=== PATIENT | female | born 1965 | race Caucasian/White ===

== ENCOUNTER → 2021-09-04 07:44 | Outpatient (CLI) | payer BC, SELFPAY ==
--- NOTE | ~2021-09-04 | MM_ITS ---
EXAMINATION: MM screening esther BI w rahel HISTORY: Screening mammogram TECHNIQUE: Craniocaudal and mediolateral oblique 3-D tomosynthesis images were obtained and synthetic 2-D images were generated. CAD analysis was submitted and interpreted. COMPARISON: 09/04/2018, 08/17/2017, 08/03/2016 bilateral screening mammogram examinations BREAST PARENCHYMAL COMPOSITION: There are scattered areas of fibroglandular density. FINDINGS: There is no evidence of suspicious mass, calcification, or architectural distortion to sugg est malignancy in either breast. There has been no suspicious interval change. IMPRESSION: 1. No mammographic evidence of malignancy. 2. Recommend routine screening mammography in one year. BI-RADS Category 1: Negative Reviewed, dictated and finalized at location A. E BROKER
--- NOTE | ~2021-09-04 | DEXA_ITS ---
Bone Density Report Name: YESSENIA BUSTAMANTE Age: 56 Sex: Female Ethnicity: White Date of : 1965 Indication: monitoring treatment; inflammatory bowel disease; asthma or emphysema; Referring Provider: Isrrael, Lor Study: Bone densitometry was performed. Exam Date: September 04, 2021 Accession number: [id number] Bone Density: Region BMD T-score Z-score Classification AP Spine (L1-L4) 1.350 2.8 3.9 Normal Femoral Neck (Left) 1.150 2.7 3.8 Normal Total Hip (Left) 1.270 2.7 3.4 Normal Femoral Neck (Right) 1.245 3.6 4.7 Normal Total Hip (Right) 1.300 2.9 3.7 Normal Total Hip Mean 1.285 2.8 3.6 Normal World Health Organization criteria for BMD impression classify patients as: Normal (T-score at or above -1.0), Osteopenia (T-score between -1.0 and -2.5), or Osteoporosis (T-score at or below -2.5). 10-year Fracture Risk: FRAX not reported because: All T-scores for Spine Total, Hip Total, Femoral Neck at or above -1.0 Previous Exams: Region Exam Age BMD T-score BMD Change BMD Change Date g/cm2 vs Baseline vs Previous AP Spine(L1-L4) 09/04/2021 56 1.350 2.8 0.004 0.004 08/03/2016 50 1.346 2.7 Total Hip(Left) 09/04/2021 56 1.270 2.7 -0.026 -0.026 08/03/2016 50 1.295 2.9 Total Hip(Right) 09/04/2021 56 1.300 2.9 -0.006 -0.006 08/03/2016 50 1.306 3.0 *Denotes significance at 95% confidence level, LSC for AP Spine = 0.022 g/cm2, LSC for Total Hip = 0.027 g/cm2 Clinical Information Provided by Patient: Is being treated for osteoporosis Has used the following medications: HRT (i.e. estrogen/hormone therapy), Vitamin D, MTV Has the following medical conditions: Asthma or Emphysema, Inflammatory bowel diseases Patient maximum height was 67 Menopause Age: 46 No regular weight bearing exercise Drinks caffeinated beverages Onset of menses at age 13 Number of children 2 Impression: The patient has normal bone mass. No significant bone loss was observed. Discussion: PATIENT UNDER TREATMENT WITH NO SIGNIFICANT BMD LOSS SINCE LAST EXAM. In an untreated patient, BMD typically declines with age. A lack of decline or gain is usually a sign that treatment is efficacious and fracture risk is reduced. It is important to ask patients whether they are taking their medications and to encourage continued and appropriate compliance with their osteoporosis therapies to reduc
== END ==
PROVIDERS: PCP Family Medicine; Visit Provider Nurse Practitioner
DX: Z12.31 Encounter for screening mammogram for malignant neoplasm of breast (principal); Z78.0 Asymptomatic menopausal state
CPT/HCPCS: 77063; 77067; 77080

== ENCOUNTER 2021-11-28 13:03 | Emergency (ER) | payer BC, SELFPAY ==
--- NOTE | ~2021-11-28 | XR_ITS ---
EXAMINATION: XR chest 2V DATE: 11/28/2021 13:26 INDICATION: Shortness of breath and nonproductive cough TECHNIQUE: PA and lateral views of the chest were obtained. COMPARISON: Chest radiograph dated 01/28/2019 FINDINGS: The lungs remain clear with no focal airspace opacities, pulmonary edema, pleural effusion or pneumot horax. The cardiomediastinal silhouette is normal. Visualized bones and soft tissues are unremarkable . IMPRESSION: 1. No acute cardiopulmonary disease. Reviewed, dictated and finalized at location A.
[2021-11-28 13:10] VITALS: BP 154/74; PULSE 88; RESP 18; TEMP 37.3; O2SAT 99
--- NOTE | 2021-11-28 13:11 | ED.SOB ---
HPI - SOB/Dyspnea General Chief Complaint: Shortness of Breath/Dyspnea Stated Complaint: Cough,Shortness of Breath Time Seen by Provider: 11/28/21 13:11 Source: patient Mode of arrival: ambulatory Limitations: no limitations History of Present Illness HPI Narrative: 56-year-old female with history of seasonal asthma presents with complaint of dry cough that started 2 days ago. Reports last night cough became worse she was up all night coughing and short of breath. Has been using her albuterol inhaler every 4-6 hours without any relief of chest tightness and shortness of breath. She is also taking Mucinex as she feels that her chest is congested. She denies fever, chills, body aches. She denies nausea vomiting diarrhea. All systems reviewed and negative except as noted above. Related Data Home Medications Medication Instructions Recorded Confirmed cetirizine [Zyrtec] 10 mg PO DAILY 11/28/21 11/28/21 estradiol 1 mg PO DAILY 11/28/21 11/28/21 medroxyprogesterone 5 mg PO DAILY 11/28/21 11/28/21 Allergies Allergy/AdvReac Type Severity Reaction Status Date / Time No Known Allergies Allergy Verified 11/28/21 13:08 Review of Systems Review of Systems: CONSTITUTIONAL: Denies fever, chills, or sweats. EYES: Denies visual changes, redness, or discharge. ENT: Denies rhinorrhea, congestion, sore throat, or otalgia. CARDIOVASCULAR: Denies chest pain, palpitations, or edema. RESPIRATORY: Reports cough, chest tightness and chest congestion. Reports dyspnea on exertion. GASTROINTESTINAL: Denies abdominal pain, nausea, vomiting, or diarrhea. GENITOURINARY: Denies dysuria or hematuria. SKIN: Denies rash or itching. MUSCULOSKELETAL: Denies back pain, joint pain, or myalgia. NEUROLOGIC: Denies headache, numbness, or weakness. PSYCHIATRIC: Denies anxiety or depression. All other systems reviewed are negative, except as documented in HPI. [facility] Family History Family History Mother Hypertension Acute myocardial infarction Family history of diabetes mellitus in first degree relative Diabetes mellitus Sibling Family history of lymphoma Other Family history of allergic disorder No family history of cardiovascular disease No family history of malignant neoplasm Social History Social History Smoking status: Never smoker Alcohol intake: never Comments At time of signature, agree with nursing past medical, surgical, social and family history. There is no relevant family history pertinent to the presenting complaint. Exam Narrative: GENERAL: This is a well-nourished, well-developed patient, in no apparent distress. HEAD: normocephalic, atraumatic. EYES: PERRL. Sclera clear/white. Vision is grossly intact. EARS: External ears normal, auditory canals clear and without drainage, TMs normal without perforation. Hearing grossly intact. NOSE: External nose normal with no obvious nasal discharge, nares without redness, no rhinorrhea. THROAT: Mucous membranes moist, posterior pharynx clear. NECK: Neck supple, non-tender without lymphadenopathy, masses or thyromegaly. CARDIOVASCULAR: Regular rate and rhythm without murmurs, gallops, or rubs. RESPIRATORY: Coarse and congested lung sounds throughout all lung denney on expiration. No respiratory distress. Able to speak in full sentences. SKIN: warm, Dry, intact with no suspicious lesions or rash, good texture and turgor. NEURO: awake, alert, and oriented to person, place and time. There were no obvious focal neurologic abnormalities. EXTREMITIES: Normal range of motion to all extremities. Course Course Level of Care: Express Care Visit Reevaluation(s) Reevaluation #1: Patient reports that chest tightness has improved, able to take a deeper breath. Continues to have coarse lung sounds on expiration throughout all lung denney but somewhat improved. Date: 11/28/21 Time:
[2021-11-28 13:22] VITALS: BP 154/74; PULSE 88; RESP 18; TEMP 37.3; O2SAT 99
[2021-11-28 13:30] VITALS: PULSE 88; RESP 20; O2SAT 99
[2021-11-28] MEDS: predniSONE 20 MG TABLET 40 MG PO (13:30)
[2021-11-28] MEDS: ALBUTEROL SULFATE NEB 2.5 MG/3 ML INH INHALATION (13:30)
[2021-11-28 13:47] VITALS: PULSE 92; RESP 18; O2SAT 99
== END 2021-11-28 13:54 | disposition home or self-care (01) ==
PROVIDERS: Emergency Provider Nurse Practitioner Family; PCP Family Medicine
DX: J45.41 Moderate persistent asthma with (acute) exacerbation (principal)
CPT/HCPCS: 71046; 94640; 99213; G0463; J7512

== ENCOUNTER 2022-05-23 14:16 | Emergency (ER) | payer BC, SELFPAY ==
[2022-05-23 14:27] VITALS: BP 163/84; PULSE 78; RESP 12; TEMP 36.8; O2SAT 100
--- NOTE | 2022-05-23 14:42 | ED.URI ---
HPI - URI/Sore Throat General Chief Complaint: Upper Respiratory Infection Stated Complaint: Rt ear pain Time Seen by Provider: 05/23/22 14:42 Source: patient and RN notes reviewed Mode of arrival: ambulatory Limitations: no limitations History of Present Illness HPI Narrative: 56-year-old female presents with concern for right ear pain started 2 days ago. Reports it feels like her lymph nodes are swollen on that side as well. She reports history of allergies, however she has not had any sinus pain, pressure, increasing drainage. She denies any [id number] medications for her symptoms MD elicited complaint: other (Ear pain) Related Data Home Medications Medication Instructions Recorded Confirmed estradiol 1 mg tablet 1 mg PO DAILY 11/28/21 11/28/21 medroxyprogesterone 5 mg tablet 5 mg PO DAILY 11/28/21 11/28/21 Allergies Allergy/AdvReac Type Severity Reaction Status Date / Time No Known Allergies Allergy Verified 11/28/21 13:08 Review of Systems Review of Systems: CONSTITUTIONAL: Denies malaise, chills, sweats, or fever. EYES: Denies visual changes, redness, or discharge. ENT: Reports rhinorrhea, congestion, right ear pain. Denies sinus pain, otalgia CARDIOVASCULAR: Denies chest pain, palpitations, or edema. RESPIRATORY: Denies cough. Denies dyspnea. GASTROINTESTINAL: Denies abdominal pain, nausea, vomiting, diarrhea SKIN: Denies rash or itching. MUSCULOSKELETAL: Denies myalgia. NEUROLOGIC: Denies headache. All systems reviewed & are unremarkable except as noted in HPI and below PMFSH Past Medical History Medical History (Updated 05/23/22 @ 14:50 by Ananya Arce NP) Skin tag Family History Family History Mother Hypertension Acute myocardial infarction Family history of diabetes mellitus in first degree relative Diabetes mellitus Sibling Family history of lymphoma Other Family history of allergic disorder No family history of cardiovascular disease No family history of malignant neoplasm Social History Social History Smoking status: Never smoker Alcohol intake: never Comments At time of signature, agree with nursing past medical, surgical, social and family history. There is no relevant family history pertinent to the presenting complaint Exam Narrative: GENERAL: Well-appearing, well-nourished, and in no acute distress. HEAD: Normocephalic EYES: PERRLA, conjunctivae clear ENT: Nares clear. membranes moist. Left TM pearly molina with dull light reflex, right TM erythematous; no tragal tenderness. Oropharynx not erythematous without lesions. Tonsils not enlarged and without exudate, no drooling, no hoarseness, no trismus, uvula midline. NECK: Supple. No lymphadenopathy CHEST: Clear to auscultation, breath sounds equal. No wheezing, rhonchi, rales, or stridor. No respiratory distress, speaks in full sentences. HEART: Regular rate and rhythm. No murmur heard. SKIN: Warm, dry, no rash. NEURO: Alert and oriented x3. PSYCH: Normal mood and affect Course Course Emergency Course: Patient is aware of diagnosis, understands and agrees to treatment plan. Anticipatory guidance given. Patient agrees to follow-up as directed and is aware of reasons to seek care at the emergency department. Portions of this record may have been created with voice recognition software Level of Care: Express Care Visit Vital Signs Vital signs: Vital Signs Temperature 98.3 F 05/23/22 14:27 Pulse Rate 78 05/23/22 14:27 Respiratory Rate 12 05/23/22 14:27 Blood Pressure 163/84 H 05/23/22 14:27 Pulse Oximetry 100 05/23/22 14:27 Oxygen Delivery Room Air 05/23/22 14:27 Temperature 98.3 F 05/23/22 14:27 Pulse Rate 78 05/23/22 14:27 Respiratory Rate 12 05/23/22 14:27 Blood Pressure 163/84 H 05/23/22 14:27 Pulse Oximetry 100 05/23/22 14:27 Oxygen Delivery
== END 2022-05-23 14:59 | disposition home or self-care (01) ==
PROVIDERS: Emergency Provider Nurse Practitioner; PCP Emergency Medicine
DX: H66.001 Acute suppurative otitis media without spontaneous rupture of ear drum, right ear (principal); J45.909 Unspecified asthma, uncomplicated
CPT/HCPCS: 99213; G0463

== ENCOUNTER 2022-05-26 15:22 | Outpatient (CLI) | payer BC, SELFPAY ==
[2022-05-26 20:02] LABS: Basophils Absolute Auto 0.1 K/mm3 (0.0-0.1); Eosinophils Absolute Auto 0.3 K/mm3 (0-0.3); Eosinophils Percent Auto 3.4 % (0-4.4); Hematocrit 42.7 % (37.0-47.0); Hemoglobin 13.7 g/dL (12.0-15.0); Immature Granulocyte Absolute 0.02 K/mm3 (0.00-0.031); Immature Granulocyte Percent A 0.2 % (0-0.5); Lymphocytes Absolute Auto 2.37 K/mm3 (0.9-3.2); Lymphocytes Percent Auto 25.8 % (18.3-44.2); Mean Corpuscular HGB Conc 32.1 g/dl (32-36); Mean Corpuscular Hemoglobin 29.6 pg (26-34); Mean Corpuscular Volume 92.2 fl (80-100); Mean Platelet Volume 10.6 fl (7.4-10.4); Monocytes Absolute Auto 0.9 K/mm3 (0.1-0.6); Monocytes Percent Auto 9.8 % (2.6-8.5); Neutrophils Absolute Auto 5.5 K/mm3 (1.3-6.7); Neutrophils Percent Auto 59.8 % (45.5-73.1); Platelet Count Result 276 k/mm3 (150-375); Red Blood Count 4.63 M/mm3 (4.2-5.4); Red Cell Distribution Width 13.2 % (11.5-14.5); White Blood Count 9.2 K/mm3 (4.5-10.0)
[2022-05-26 20:17] LABS: Alanine Aminotransferase 35 U/L (6-35); Albumin Level 4.2 g/dL (3.5-5.1); Alkaline Phosphatase 71 U/L (38-126); Anion Gap 13 mmol/L (8-16); Aspartate Amino Transferase 32 U/L (14-36); Bilirubin,Total 0.3 mg/dL (0.2-1.3); Blood Urea Nitrogen 16 mg/dL (7-17); Calcium 9.1 mg/dL (8.4-10.2); Carbon Dioxide 27 mmol/L (22-30); Chloride 104 mmol/L (98-107); Estimated Glomerular Filt Rate > 60; Glucose 92 mg/dL (65-110); Potassium 3.6 mmol/L (3.4-5.0); Sodium 144 mmol/L (137-145)
== END 2022-05-26 15:23 | disposition home or self-care (01) ==
LOC: ANHGOSHLAB 15:24
PROVIDERS: PCP Emergency Medicine; Visit Provider Emergency Medicine
DX: L02.11 Cutaneous abscess of neck (principal)
CPT/HCPCS: 36415; 80053; 85025

== ENCOUNTER 2022-05-28 10:02 | Outpatient (CLI) | payer BC, SELFPAY ==
--- NOTE | ~2022-05-28 | CT_ITS ---
EXAMINATION: CT soft tissue neck w con DATE: 05/28/2022 11:08 INDICATION: Neck pain. Neck abscess. TECHNIQUE: Computed tomography (CT) of the neck was performed with 75 mL Omnipaque-350 intravenous co ntrast. Automated exposure control and iterative reconstruction technique were employed. The dose-acrlos gth product was 1102.99 mGy-cm. COMPARISON: None FINDINGS: The adenoids are normal. There are calcifications in left palatine tonsil. The epiglottis i s normal. There are no pathologically enlarged lymph nodes. The parotid glands are normal. There is m ild mucosal thickening in left maxillary sinus. The mastoid air cells are normal. There is moderate c ervical spondylosis. IMPRESSION: 1. No abscess. Reviewed, dictated and finalized at location A. IMPRESSION: 1. No abscess.
== END 2022-05-28 10:03 | disposition home or self-care (01) ==
PROVIDERS: PCP Emergency Medicine; Visit Provider Emergency Medicine
DX: M54.2 Cervicalgia (principal)
CPT/HCPCS: 70491; Q9967

== ENCOUNTER 2022-07-12 17:09 | Emergency (ER) | payer BC, SELFPAY ==
--- NOTE | ~2022-07-12 | XR_ITS ---
XR knee LT min 4V 07/12/2022 17:39 Indication: Left posterior knee pain Procedure: 4 views right knee Comparison: No prior studies for comparison. Findings: There is moderate tricompartment osteoarthritis of the left knee. No fracture or traumatic malalignment. No significant joint effusion. Impression: 1: Moderate osteoarthritis of the left knee. Reviewed, dictated and finalized at location A. ING MACHINE ASSISTANT Impression: 1: Moderate osteoarthritis of the left knee.
[2022-07-12 17:21] VITALS: BP 136/79; PULSE 82; RESP 18; TEMP 36.9; O2SAT 98
--- NOTE | 2022-07-12 17:43 | ED.EXTPRO ---
HPI - Extremity Problem General Chief complaint: Extremity Problem,Nontraumatic Stated complaint: lt knee pain Time Seen by Provider: 07/12/22 17:43 Source: patient Mode of arrival: ambulatory Limitations: no limitations History of Present Illness HPI Narrative: 56-year-old female presents with complaint of pain left posterior knee past 3-4 days. Denies injury. States today pain is worse with pain to left posterior knee wrapping around lateral aspect. Ambulatory with limp. No other complaints today. Taking Tylenol to treat pain. All systems reviewed and negative except as noted above. Related Data Home Medications Medication Instructions Recorded Confirmed estradiol 1 mg tablet 1 mg PO DAILY 11/28/21 07/12/22 medroxyprogesterone 5 mg tablet 5 mg PO DAILY 07/12/22 07/12/22 paroxetine HCl 10 mg tablet 10 mg PO HS 07/12/22 07/12/22 Allergies Allergy/AdvReac Type Severity Reaction Status Date / Time No Known Allergies Allergy Verified 07/12/22 17:16 Review of Systems Review of Systems: CONSTITUTIONAL: Denies fever, chills, or sweats. EYES: Denies visual changes, redness, or discharge. ENT: Denies rhinorrhea, congestion, sore throat, or otalgia. CARDIOVASCULAR: Denies chest pain, palpitations, or edema. RESPIRATORY: Denies cough or dyspnea. GASTROINTESTINAL: Denies abdominal pain, nausea, vomiting, or diarrhea. GENITOURINARY: Denies dysuria or hematuria. SKIN: Denies rash or itching. MUSCULOSKELETAL: Reports pain to left knee. NEUROLOGIC: Denies headache, numbness, or weakness. PSYCHIATRIC: Denies anxiety or depression. All other systems reviewed are negative, except as documented in HPI. [facility] Past Medical History Medical History Skin tag Family History Family History Mother Hypertension Acute myocardial infarction Family history of diabetes mellitus in first degree relative Diabetes mellitus Sibling Family history of lymphoma Other Family history of allergic disorder No family history of cardiovascular disease No family history of malignant neoplasm Social History Social History Social History: Caffeine- coffee Smoking status: Never smoker Alcohol intake: never Comments At time of signature, agree with nursing past medical, surgical, social and family history. There is no relevant family history pertinent to the presenting complaint. Exam Narrative: GENERAL: This is a well-nourished, well-developed patient, in no apparent distress. HEAD: normocephalic, atraumatic. EYES: PERRL. Sclera clear/white. Vision is grossly intact. EARS: External ears normal NOSE: External nose normal NECK: Neck supple, non-tender without lymphadenopathy, masses or thyromegaly. CARDIOVASCULAR: Regular rate and rhythm without murmurs, gallops, or rubs. RESPIRATORY: Clear to auscultation. Breath sounds equal bilaterally. No wheezes, rales, or rhonchi. SKIN: warm, Dry, intact with no suspicious lesions or rash, good texture and turgor. NEURO: awake, alert, and oriented to person, place and time. There were no obvious focal neurologic abnormalities. EXTREMITIES: Tenderness to posterior and lateral aspect left knee, left patellar tendon. Negative anterior posterior drawer. No significant swelling noted. No warmth or redness noted. Course Course Level of Care: Express Care Visit Vital Signs Vital signs: Vital Signs Temperature 36.9 C 07/12/22 17:21 Pulse Rate 82 07/12/22 17:21 Respiratory Rate 18 07/12/22 17:21 Blood Pressure 136/79 07/12/22 17:21 Pulse Oximetry 98 07/12/22 17:21 Oxygen Delivery Room Air 07/12/22 17:21 Temperature 36.9 C 07/12/22 17:21 Pulse Rate 82 07/12/22 17:21 Respiratory Rate 18 07/12/22 17:21 Blood Pressure 136/79 07/12/22 17:21 Pulse Oximetry 98 07/12/22
== END 2022-07-12 17:58 | disposition home or self-care (01) ==
PROVIDERS: Emergency Provider Nurse Practitioner Family; PCP Emergency Medicine
DX: M17.12 Unilateral primary osteoarthritis, left knee (principal)
CPT/HCPCS: 73564; 99213; G0463

== ENCOUNTER 2022-12-08 15:30 | Outpatient (CLI) | payer BC, SELFPAY ==
[2022-12-08 20:49] LABS: Folic Acid > 20.0 ng/mL (2.76->20)
== END 2022-12-08 15:31 | disposition home or self-care (01) ==
LOC: ANHGOSHLAB 15:32
PROVIDERS: PCP Emergency Medicine; Visit Provider Physician Assistant
DX: R53.83 Other fatigue (principal)
CPT/HCPCS: 36415; 82607; 82746

== ENCOUNTER → 2023-04-08 09:16 | Outpatient (CLI) | payer BC, SELFPAY ==
--- NOTE | ~2023-04-08 | MM_ITS ---
EXAMINATION: MM screening esther BI w rahel HISTORY: Screening mammogram TECHNIQUE: Craniocaudal and mediolateral oblique 3-D tomosynthesis images were obtained and synthetic 2-D images were generated. CAD analysis was submitted and interpreted. COMPARISON: 09/04/2021, 09/04/2018 bilateral screening mammogram examinations BREAST PARENCHYMAL COMPOSITION: There are scattered areas of fibroglandular density. FINDINGS: There is no evidence of suspicious mass, calcification, or architectural distortion to sugg est malignancy in either breast. There has been no suspicious interval change. IMPRESSION: 1. No mammographic evidence of malignancy. 2. Recommend routine screening mammography in one year. BI-RADS Category 1: Negative Reviewed, dictated and finalized at location A.
== END ==
PROVIDERS: PCP Emergency Medicine; Visit Provider Nurse Practitioner
DX: Z12.31 Encounter for screening mammogram for malignant neoplasm of breast (principal)
CPT/HCPCS: 77063; 77067

== ENCOUNTER 2024-06-03 15:33 | Outpatient (CLI) | payer BC, SELFPAY ==
--- NOTE | ~2024-06-03 | MM_ITS ---
EXAMINATION: MM screening esther BI w rahel HISTORY: Screening mammogram TECHNIQUE: Craniocaudal and mediolateral oblique 3-D tomosynthesis images were obtained and synthetic 2-D images were generated. CAD analysis was submitted and interpreted. COMPARISON: 04/08/2023, 09/04/2021, 09/04/2018 BREAST PARENCHYMAL COMPOSITION:Not Dense. The breasts are almost entirely fatty FINDINGS: No suspicious mass, calcification, or architectural distortion are identified in either sonia ast to suggest malignancy. There has been no suspicious interval change. IMPRESSION: No mammographic evidence of malignancy. Recommend routine screening mammography in one year. BI-RADS Category 1: Negative Reviewed, dictated and finalized at location .
== END 2024-06-03 15:34 | disposition home or self-care (01) ==
LOC: ANHIMG 15:48
PROVIDERS: PCP Emergency Medicine; Visit Provider Nurse Practitioner
DX: Z12.31 Encounter for screening mammogram for malignant neoplasm of breast (principal)
CPT/HCPCS: 77063; 77067

== ENCOUNTER 2024-09-29 08:19 | Emergency (ER) | payer BC, SELFPAY ==
--- OUTSIDE RECORDS SUMMARY | 2024-09-29 08:22 | XMS_ITS | Referral Summary ---
Author Organization [facility] Address [address] [place] [address] Care Team Providers Care Senior Software Engineer Analytics Name Role Phone Pina Chin MD Primary Care Provider [phone] Source Comments [facility],non-owned Affiliates and Associated Physician Practices is amultiple site organization consisting of ambulatory clinics and hospital sitesin [place], [place], [place] and [place]. This disclosure is being madepursuant to the Care Everywhere program and may not contain all information available regarding this patient. Last updated 18.[facility] Allergies No known active allergies Medications * Be aware that medications may not be up to date on this document. Alwaysverify current medications with the patient. Medication Sig Dispensed Refills Start Date End Date Status PARoxetine (PAXIL) 10 MG tablet Take 10 mg by mouth once daily Active medroxyPROGESTERone (PROVERA) 5 MG tablet Take 5 mg by mouth once daily Active Pseudoephedrine HCl (SUDAFED 24 HOUR PO) Acti ve Pumpkin Seed-Soy Germ (AZO BLADDER CONTROL/GO-LESS PO) Activ e BLACK ELDERBERRY PO Activ e Glucosamine-Chondroit in 2929-6597 MG/30ML Acti ve cetirizine (ZYRTEC ALLERGY) 10 MG gel capsule Take 10 mg by mouth once daily Active Calcium Carbonate-Vitamin D 300-100 MG-UNIT Active omeprazole (PRILOSEC) 40 MG capsule Take 40 mg by mouth daily before breakfast Active estradiol (ESTRACE) 1 MG tablet Take 1 mg by mouth once daily Active ALBUTEROL SULFATE HFA IN Active Social History Tobacco Use Types Packs/Day Years Used Date Smoking Tobacco: Never Smokeless Tobacco: Never Sex and Gender Information Value Date Recorded Sex Assigned at Not on file Gender Identity Not on file Sexual Orientation Not on file Last Filed Vital Signs Vital Sign Reading Time Taken Comments Blood Pressure 144/90 07/04/2021 4:23 PM PORTRAIT PHOTOGRAPHER Pulse 85 07/04/2021 4:23 PM PORTRAIT PHOTOGRAPHER Temperature 37.1 C (98.7 F) 07/04/2021 4:23 PM PORTRAIT PHOTOGRAPHER Respiratory Rate 16 07/04/2021 4:23 PM PORTRAIT PHOTOGRAPHER Oxygen Saturation 98% 07/04/2021 4:23 PM PORTRAIT PHOTOGRAPHER Inhaled Oxygen Concentration - - Weight 110.7 kg (244 lb) 07/04/2021 4:23 PM PORTRAIT PHOTOGRAPHER Height 170.2 cm (5' 7 ) 07/04/2021 4:23 PM PORTRAIT PHOTOGRAPHER Body Mass Index 38.22 07/04/2021 4:23 PM PORTRAIT PHOTOGRAPHER Plan of Treatment Not on file Care Teams Senior Software Engineer Analytics Relationship Specialty Start Date End Date Pina Chin MD [address] [place] [address] PCP - General Family Medicine 07/04/21
--- OUTSIDE RECORDS SUMMARY | 2024-09-29 08:22 | XMS_ITS | Clinical Summary ---
Author Organization [facility] Administrative [facility] Address [address] [place] [id number] Care Team Providers Care Internal Audit Manager Name Role Phone Juan Chin MD Primary Care Provider [phone] Family History Medical History Relation Name Comments Breast Cancer Neg Hx Ovarian Cancer Neg Hx Social History Tobacco Use Types Packs/Day Years Used Date Smoking Tobacco: Never Assessed Comments Unknown Sex and Gender Information Value Date Recorded Sex Assigned at Not on file Legal Sex Female 6:10 AM VOLTAGE TESTER Gender Identity Not on file Sexual Orientation Not on file Plan of Treatment Health Maintenance Due Date Last Done Comments DTAP/TDAP/TD VACCINES (1 - Tdap) 1984 HEPATITIS B VACCINES (1 of 3 - 19+ 3-dose series) 1984 CERVICAL CANCER SCREENING 1995 COLORECTAL SCREENING 2010 Colorectal Cancer Screening 2010 FIT-DNA Q 3 years 2010 FIT/FOBT Q 1 year 2010 Flex Sig/CT Colonography Q 5 years 2010 BREAST CANCER SCREENING 02/27/2013 02/28/2012 ZOSTER VACCINE (1 of 2) 2015 INFLUENZA VACCINE (#1) 2024 PNEUMOCOCCAL VACCINE 0-64 YEARS Aged Out No longer eligible based on patient's age to complete this topic Procedures Procedure Name Priority Date/Time Associated Diagnosis Comments MAMMO SCREEN BILAT W OR WO CAD Routine 02/28/2012 11:53 AM CDT Other screening mammogram from Last 3 Months or Most Recently Relevant to Health Maintenance Results * MAMMO DIGITAL SCREEN BILAT (02/28/2012 11:53 AM CDT) Anatomical Region Laterality Modality Breast Bilateral Mammography 02/28/2012 11:5 2 AM CDT Narrative 03/05/2012 8:18 AM CDT BILATERAL FULL FIELD DIGITAL SCREENING MAMMOGRAM WITH CAD. 02/28/12 HISTORY: Routine Screening. TECHNIQUE: Full field digital screening mammography of both breasts were obtained. COMPARISON: No prior studies are available for comparison. This is the patient's baseline mammogram. BREAST PARENCHYMAL COMPOSITION: Scattered fibroglandular densities. FINDINGS: No dominant masses, suspicious calcifications, parenchymal asymmetry or areas of architectural distortion are identified in either breast. The computer aided detection system was utilized. OVERALL ASSESSMENT: BI-RADS category 1: Negative. RECOMMENDATION: Annual mammography is recommended. Procedure Note Tima Thacker MD - 03/05/2012 BILATERAL FULL FIELD DIGITAL SCREENING MAMMOGRAM WITH CAD. 02/28/12 HISTORY: Routine Screening. TECHNIQUE: Full field digital screening mammography of both breasts were obtained. COMPARISON: No prior studies are available for comparison. This is the patient's baseline mammogram. BREAST PARENCHYMAL COMPOSITION: Scattered fibroglandular densities. FINDINGS: No dominant masses, suspicious calcifications, parenchymal asymmetry or areas of architectural distortion are identified in either breast. The computer aided detection system was utilized. OVERALL ASSESSMENT: BI-RADS category 1: Negative. RECOMMENDATION: Annual mammography is recommended. Juan Chin MD MAMMO ORDERABLES Final Resu lt from Last 3 Months or Most Recently Relevant to Health Maintenance Insurance [employer] BLUE ACCESS/TRUE BLUE PPO Care Teams Internal Audit Manager Relationship Specialty Start Date End Date Juan Chin MD [address] [place] [id number] PCP - General Family Practice 02/20/12
--- OUTSIDE RECORDS SUMMARY | 2024-09-29 08:22 | XMS_ITS | Clinical Summary ---
Author Organization [facility] [employer] Address [address] [place] [address] Care Team Providers Care Broom Maker Name Role Phone Pina Chin MD Primary Care Provider [phone] Source Comments [facility] [employer],non-owned Affiliates and Associated Physician Practices is amultiple site organization consisting of ambulatory clinics and hospital sitesin [place], [place], [place] and [place]. This disclosure is being madepursuant to the Care Everywhere program and may not contain all information available regarding this patient. Last updated 18.[facility] [employer] Allergies No known active allergies Medications * [...] BLACK ELDERBERRY PO Activ e Glucosamine-Chondroit in 2810-8473 MG/30ML Acti ve cetirizine (ZYRTEC ALLERGY) 10 [...] Comments Blood Pressure 144/90 07/04/2021 4:23 PM STUDENT AFFAIRS VICE PRESIDENT Pulse 85 07/04/2021 4:23 PM STUDENT AFFAIRS VICE PRESIDENT Temperature 37.1 C (98.7 F) 07/04/2021 4:23 PM STUDENT AFFAIRS VICE PRESIDENT Respiratory Rate 16 07/04/2021 4:23 PM STUDENT AFFAIRS VICE PRESIDENT Oxygen Saturation 98% 07/04/2021 4:23 PM STUDENT AFFAIRS VICE PRESIDENT Inhaled Oxygen Concentration - - Weight 110.7 kg (244 lb) 07/04/2021 4:23 PM STUDENT AFFAIRS VICE PRESIDENT Height 170.2 cm (5' 7 ) 07/04/2021 4:23 PM STUDENT AFFAIRS VICE PRESIDENT Body Mass Index 38.22 07/04/2021 4:23 PM STUDENT AFFAIRS VICE PRESIDENT Plan of Treatment Health Maintenance Due Date Last Done Comments COLOGUARD (AGES 45-75) - COL ON CA SCREENING 1965 COLON MONITORING 1965 COLONOSCOPY - COLON CA SCREENING 1965 CT COLONOGRAPHY - COLON CA SCREENING 1965 Colorectal Cancer Screening 1965 FIT - COLON CA SCREENING 1965 FLEX SIG - COLON CA SCREENING 1965 LIPID TESTING 1965 MAMMOGRAM 1965 HIV SCREENING 1980 HEPATITIS C SCREENING 08/13/1983 DTAP/TDAP/TD VACCINES (1 - Tdap) 1984 HEPATITIS B VACCINE (1 of 3 - 19+ 3-dose series) 1984 PNEUMOCOCCAL VACCINE 50+ (1 of 1 - PCV) 2015 ZOSTER VACCINE (1 of 2) 2015 PAP SMEAR 07/04/2020 07/04/2017 SCREENING FOR DIABETES 07/04/2021 COVID-19 VACCINE (2 - 2023-2 5 season) 2024 12/23/2020 INFLUENZA VACCINE (#1) 2024 , 06/30/2018 DEPRESSION SCREENING 08/07/2024 HIB VACCINE Aged Out No longer eligi ble based on patient's age to complete this topic HPV VACCINE Aged Out No longer eligi ble based on patient's age to complete this topic MENINGOCOCCAL (Group B) VACCINE Aged Out No longer eligible b ased on patient's age to complete this topic MENINGOCOCCAL VACCINE Aged Out No aditi lashell eligible based on patient's age to complete this topic PNEUMOCOCCAL VACCINE Aged Out No long er eligible based on patient's age to complete this topic Care Teams Broom Maker Relationship Specialty Start Date End Date Pina Chin MD [address] [place] [id number] PCP - General Family Medicine 07/04/21
--- OUTSIDE RECORDS SUMMARY | 2024-09-29 08:22 | XMS_ITS | Patient Health Summary ---
Author Organization [facility] [employer] Address [address] [place] [address] Care Team Providers Care Chemistry Quality Control Analyst Name Role Phone Pina Chin MD Primary Care Provider [phone] [facility],non-owned Affiliates and Associated Physician Practices is amultiple site organization consisting of ambulatory clinics and hospital sitesin [place], [place], [place] and [place]. This disclosure is being madepursuant to the Care Everywhere program and may not contain all information available regarding this patient. Last updated 18.[facility] Allergies No known active allergies Medications * Be aware that medications may not be up to date on this document. Alwaysverify current medications with the patient. * PARoxetine (PAXIL) 10 MG tablet Take 10 mg by mouth once daily * medroxyPROGESTERone (PROVERA) 5 MG tablet Take 5 mg by mouth once daily * Pseudoephedrine HCl (SUDAFED 24 HOUR PO) * Pumpkin Seed-Soy Germ (AZO BLADDER CONTROL/GO-LESS PO) * BLACK ELDERBERRY PO * Glucosamine-Chondroitin 8892-3491 MG/30ML * cetirizine (ZYRTEC ALLERGY) 10 MG gel capsule Take 10 mg by mouth once daily * Calcium Carbonate-Vitamin D 300-100 MG-UNIT * omeprazole (PRILOSEC) 40 MG capsule Take 40 mg by mouth daily before breakfast * estradiol (ESTRACE) 1 MG tablet Take 1 mg by mouth once daily * ALBUTEROL SULFATE HFA IN Social History Tobacco Use Types Packs/Day Years Used Date Smoking Tobacco: Never Smokeless Tobacco: Never Sex and Gender Information Value Date Recorded Sex Assigned at Not on file Gender Identity Not on file Sexual Orientation Not on file Last Filed Vital Signs Vital Sign Reading Time Taken Comments Blood Pressure 144/90 07/04/2021 4:23 PM INSIDE SOLAR SALES CONSULTANT Pulse 85 07/04/2021 4:23 PM INSIDE SOLAR SALES CONSULTANT Temperature 37.1 C (98.7 F) 07/04/2021 4:23 PM INSIDE SOLAR SALES CONSULTANT Respiratory Rate 16 07/04/2021 4:23 PM INSIDE SOLAR SALES CONSULTANT Oxygen Saturation 98% 07/04/2021 4:23 PM INSIDE SOLAR SALES CONSULTANT Inhaled Oxygen Concentration - - Weight 110.7 kg (244 lb) 07/04/2021 4:23 PM INSIDE SOLAR SALES CONSULTANT Height 170.2 cm (5' 7 ) 07/04/2021 4:23 PM INSIDE SOLAR SALES CONSULTANT Body Mass Index 38.22 07/04/2021 4:23 PM INSIDE SOLAR SALES CONSULTANT Procedures * SARS-COV-2 (COVID-19) AG (AMB) POCT(Performed 07/04/2021) Performed for Viral URI Results * SARS-COV-2 (COVID-19) AG (AMB) POCT (07/04/2021 4:43 PM INSIDE SOLAR SALES CONSULTANT) SARS-CoV-2 Ag Negative Negative [facility] Lot # [id number] [facility] Expiration Date 10/10/22 [facility] [employer] Instrument Serial Number [id number] [facility] [employer] COVID Internal Control Acceptable Acceptable [facility] Microbiology SPECIMEN FROM NASAL FOSSAE / Unknown 07/04/2021 4:43 PM INSIDE SOLAR SALES CONSULTANT Narrative [facility] - 07/04/2021 4:44 PM INSIDE SOLAR SALES CONSULTANT SARS-CoV-2 antigen testing is authorized for use with nasal (Veritor, BinaxNOW, or Lisa) or nasopharyngeal (Lisa) swabs collected from individuals who are suspected of COVID-19 infection by their healthcare provider within the first five days of onset of symptoms. False-positive SARS-CoV-2 test results are more likely to occur when disease prevalence is low (less than 1%). False-negative SARS-CoV-2 test results are more likely to occur when disease prevalence is high (greater than 10%). This test has been authorized by the Food and Drug administration (FDA)under an Emergency Use Authorization (EUA). This test is only authorized for the duration of time the declaration that circumstances exist justifying the authorization of emergency use of in vitro diagnostic tests for detection of SARS-CoV-2 virus and/or diagnosis of COVID-19 infection under section 564(b)(1) of the Act, 21 U.S.C 360bbb-3 (b)(1), unless the authorization is terminated or revoked sooner. Fact Sheets for this EUA assay are available upon request. Negative results should be treated as presumptive and confirmation with a molecular assay, if necessary, for patient management, may be performed. Negative results do not rule out COVID-19 and should not be used as the sole basis for treatment or patient management decisions, including infection control decisions. Negative results should be considered in the context of a patient's recent exposures, history and the presence of clinical signs and symptoms consistent with COVID-19. Sofia Edward SOLAR INSTALLATION MANAGER-EAR SPECIALIST LAB - POINT OF CA RE ORDERABLES [place] [address], [facility] [phone] Care Teams Chemistry Quality Control Analyst Relationship Specialty Start Date End Date Pina Chin MD [address] [place] [address] PCP - General Family Medicine 07/04/21
--- OUTSIDE RECORDS SUMMARY | 2024-09-29 08:22 | XMS_ITS | Clinical Summary ---
Author Organization [facility] Care Team Providers Care Laborer Pipeline Name Role Phone Unavailable Primary Care Provider Unavailabl e Social History Tobacco Use Types Packs/Day Years Used Date Smoking Tobacco: Never Assessed Comments Unknown Sex and Gender Information Value Date Recorded Sex Assigned at Not on file Legal Sex Female 9:46 PM CERTIFIED APPLIANCE SERVICE TECHNICIAN Gender Identity Not on file Sexual Orientation Not on file Plan of Treatment Health Maintenance Due Date Last Done Comments Hepatitis C Virus (HCV) Screening 1965 TdaP Immunization 1965 Hepatitis B Immunization (1 of 3 - 19+ 3-dose series) 1984 Pap Smear 1986 Cervical Cancer Screening (CCS) 1995 HPV/Cotest 1995 Colonoscopy 2010 Colorectal Cancer Screening 2010 Cologuard 2015 Immunochemical Fecal Occult Blood 2015 Mammogram 2015 Pneumococcal Immunization (5 0+ years) (1 of 1 - PCV) 2015 Zoster Immunization (1 of 2) 2015 Influenza Immunization (#1) 2024 11/0 01/2021, 06/30/2018 SARS-COV-2 Immunization (2 - 2023- season) 2024 12/23/2020 Respiratory Syncytial Virus (RSV) Immunization (Adult) (1 - 1-dose 75+ series) 2040 Meningococcal Immunization (ACWY) Aged Out No longer eligible b ased on patient's age to complete this topic Pneumococcal Immunization Combined Aged Out No longer eligible b ased on patient's age to complete this topic Rotavirus Immunization Aged Out No lo nger eligible based on patient's age to complete this topic
--- NOTE | 2024-09-29 08:24 | ED_ITS ---
HPI - Eye Problem General Chief complaint: Eye Problems Stated complaint: Lt eye irritation Time Seen by Provider: 09/29/24 08:28 Source: patient Mode of arrival: ambulatory Limitations: no limitations History of Present Illness HPI Narrative: 59 y/o female presented for c/o left lower eye lid irritation x4 days. states the day after onset the lower lid was swollen. says she pulled the lower lid and noticed a pimple-like bump. Denies vision changes, photophobia, eye discharge, eye pain, injury or foreign body sensation. No surrounding redness or swelling reported. 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 chief complaint: eye pain Related Data Allergies Allergy/AdvReac Type Severity Reaction Status Date / Time No Known Allergies Allergy Verified 09/29/24 08:23 Review of Systems Review of Systems: CONSTITUTIONAL: Denies body aches, fever, chills EYES:Endorses swelling, redness and pain to eye; FB sensation, photophobia Denies visual changes ENT: Denies rhinorrhea, congestion, sore throat, or otalgia. CARDIOVASCULAR: Denies chest pain, palpitations RESPIRATORY: Denies cough or dyspnea. GASTROINTESTINAL: Denies abdominal pain, nausea, vomiting, or diarrhea. SKIN: Denies rash, itching, or wounds. MUSCULOSKELETAL: Denies back pain, joint pain, or myalgia. NEUROLOGIC: Denies headache, numbness, tingling, or weakness. All systems reviewed & are unremarkable except as noted in HPI and below PMFSH Past Medical History Medical History Skin tag Family History Family History Mother Hypertension Acute myocardial infarction Family history of diabetes mellitus in first degree relative Diabetes mellitus Sibling Family history of lymphoma Other Family history of allergic disorder No family history of cardiovascular disease No family history of malignant neoplasm Social History Social History Social History: Caffeine- coffee Smoking status: Never smoker Alcohol intake: never Lack of Transportation: No Lack of Food: Never True Current Housing: I Have Housing Concerned About Future Housing: No Difficulty Paying Gas/Electric Bills: No Difficulty Paying for Meds: YES Currently Unemployed: No Education: High School Diploma/GED Difficulty w/ Childcare or Family Care: No Comments At time of signature, I have reviewed and agree with nursing past medical, surgical, social and family history unless otherwise noted. Please see nursing chart for further information. There is no relevant family history pertinent to the presenting complaint Exam Narrative: GENERAL: Well-appearing HEAD: Normocephalic, atraumatic. EYES: Left lower eye lid with mild swelling, localized erythema to lash line with internal hordeolum noted to the 5o'clock area of lid. No conjunctival injection, no periorbital cellulitis. PERRLA, EOMI. Lid eversion shows no fb. ENT: Mucous membranes pink and moist. No rhinorrhea. CHEST: Clear to auscultation. HEART: Regular rate and rhythm. SKIN: Warm, dry, no rash. Normal skin turgor. NEURO: No focal deficits. Alert and oriented x3 PSYCH: Normal affect. Course Course Emergency Course: Patient is aware of diagnosis, understands and agrees to treatment plan. A nticipatory guidance given. Patient agrees to follow-up as directed and is aware of reasons to seek care at the emergency department. Portions of this record may have been created with voice recognition software Level of Care: Express Care Visit MDM - Eye Problem MDM Narrative Medical decision making narrative: Discussed physical exam findings consistent with left internal hordeola. Advised supportive measures and signs/symptoms to go to the ER. Pt is appropriate for ou tpt treatment and f/u. Differential Diagnosis Differential diagnosis: Likely corneal abrasion, conjunctivitis, acute iritis, periorbital cellulitis and other (stye) Discharge Plan Discharge Clinical Impression: Internal hordeolum of left eye Patient Disposition: Home, Self-Care Condition: Stable Instructions: Antibiotic Form, Anat (ED) Additional Instructions: Apply warm, moist compresses on the affected area frequently (for 10 minutes five or more times per day) in order to help with drainage. Massage and gentle wiping of the affected eyelid after the warm compress can also help with drainage. You can use baby shampoo to wash the eye area Avoid wearing eye makeup or contact lenses Tylenol every 8 hours for pain Take medication as directed. If the lesion does not improve within one to two weeks, please follow up with an welder 2nd shift for further management. Go to the ER immediately for any worsening symptoms or concerns [facility] [phone] [facility] [phone] [facility] [phone] [facility] [phone] Patient Language: Divehi Prescriptions: New cephalexin 500 mg capsule 500 mg PO Q8H 5 Days Qty: 15 0RF No Action naproxen 500 mg tablet 500 mg PO BID Qty: 28 0RF amitriptyline 25 mg tablet 25 mg PO QHS Qty: 90 1RF prednisone 50 mg tablet 50 mg PO DAILY Qty: 5 0RF azithromycin 250 mg tablet See Rx Instructions PO .COMPLEX Qty: 6 0RF Rx Instructions: For 250 mg dose pack: take 500 mg today (day 1), then 250 mg for 4 days (days 2-5) PO albuterol sulfate 90 mcg/actuation HFA aerosol inhaler 2 puff inhalation Q4H PRN (Reason: shortness of breath or wheezing) Qty: 6.7 1RF benzonatate 200 mg capsule 200 mg PO TID PRN (Reason: cough) Qty: 30 0RF omeprazole 40 mg capsule,delayed release(DR/EC) 40 mg PO DAILY Qty: 90 0RF Follow-up/Referrals: Brittany Cueto MD [Primary Care Provider] - Time of Disposition: 08:38
[2024-09-29 08:28] VITALS: BP 148/76; PULSE 90; RESP 16; TEMP 36.5; O2SAT 97
== END 2024-09-29 08:40 | disposition home or self-care (01) ==
PROVIDERS: Emergency Provider Nurse Practitioner Family; PCP Family Medicine
DX: H00.026 Hordeolum internum left eye, unspecified eyelid (principal)
CPT/HCPCS: 99213; G0463

== ENCOUNTER 2025-06-06 15:32 | Outpatient (CLI) | payer BC, SELFPAY ==
--- NOTE | ~2025-06-06 | MM_ITS ---
EXAMINATION: MM screening [facility] BI [facility] HISTORY: Screening TECHNIQUE: Craniocaudal and mediolateral oblique 3-D tomosynthesis images were obtained and synthetic 2-D images were generated. CAD analysis was submitted and interpreted. COMPARISON: Comparison to multiple prior studies sequentially, with oldest reviewed study dated 08/17/2017. BREAST PARENCHYMAL COMPOSITION: Not dense: There are scattered areas of fibroglandular density. FINDINGS: There is no evidence of suspicious mass, calcification, or architectural distortion to suggest malignancy in either breast. There has been no suspicious interval change. IMPRESSION: 1. No mammographic evidence of malignancy. 2. Recommend routine screening mammography in one year. BI-RADS Category 1: Negative Reviewed, dictated and finalized at location B.
--- OUTSIDE RECORDS SUMMARY | 2025-06-06 15:36 | XMS_ITS | Clinical Summary ---
Author Organization [facility] [employer] Address [address] [place] [address] Care Team Providers Care Hospital Orderly Name Role Phone Pina Chin MD Primary Care Provider [phone] Source Comments [facility] [employer],non-owned Affiliates and Associated Physician Practices is amultiple site organization consisting of ambulatory clinics and hospital sitesin [place], [place], [place] and [place]. This disclosure is being madepursuant to the Care Everywhere program and may not contain all information available regarding this patient. Last updated 18.[facility] [employer] Allergies No known active allergies Medications * Be aware that medications may not be up to date on this document. Alwaysverify current medications with the patient. PARoxetine (PAXIL) 10 MG tablet Take 10 mg by mouth once daily Active medroxyPROGESTE Alexei (PROVERA) 5 MG tablet Take 5 mg by mouth once daily Active Pseudoephedrine HCl (SUDAFED 24 HOUR PO) Active Pumpkin Seed-Soy Germ (AZO BLADDER CONTROL/GO-LESS PO) Active BLACK ELDERBERRY PO Active Glucosamine-Cho ndroitin 9877-6032 MG/30ML Active cetirizine (ZYRTEC ALLERGY) 10 MG gel capsule Take 10 mg by mouth once daily Active Calcium Carbonate-Vitam in D 300-100 MG-UNIT Active omeprazole (PRILOSEC) 40 MG capsule Take 40 mg by mouth daily before breakfast Active estradiol (ESTRACE) 1 MG tablet Take 1 mg by mouth once daily Active ALBUTEROL SULFATE HFA IN Activ e Social History Tobacco Use Types Packs/Day Years Used Date Smoking Tobacco: Never Smokeless Tobacco: Never Comments Unknown Sex and Gender Information Value Date Recorded Sex Assigned at Not on file Legal Sex Female 10:00 AM SCIENTIFIC PROGRAMMER 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 Gender Identity Not on file Sexual Orientation Not on file Last Filed Vital Signs Vital Sign Reading Time Taken Comments Blood Pressure 144/90 07/04/2021 4:23 PM SCIENTIFIC PROGRAMMER ANALYST Pulse 85 07/04/2021 4:23 PM SCIENTIFIC PROGRAMMER ANALYST Temperature 37.1 C (98.7 F) 07/04/2021 4:23 PM SCIENTIFIC PROGRAMMER ANALYST Respiratory Rate 16 07/04/2021 4:23 PM SCIENTIFIC PROGRAMMER ANALYST Oxygen Saturation 98% 07/04/2021 4:23 PM SCIENTIFIC PROGRAMMER ANALYST Inhaled Oxygen Concentration - - Weight 110.7 kg (244 lb) 07/04/2021 4:23 PM SCIENTIFIC PROGRAMMER ANALYST Height 170.2 cm (5' 7) 07/04/2021 4:23 PM SCIENTIFIC PROGRAMMER ANALYST Body Mass Index 38.22 07/04/2021 4:23 PM SCIENTIFIC PROGRAMMER ANALYST Plan of Treatment Health Maintenance Due Date [...] 2015 ZOSTER VACCINE (1 of 2) 2015 SCREENING FOR DIABETES 07/04/2021 DEPRESSION SCREENING 08/07/2024 COVID-19 VACCINE (2 - 2024-2 6 season) 2025 12/23/2020 INFLUENZA VACCINE (#1) 2025 , 06/30/2018 HIB VACCINE Aged Out No longer eligi ble based on patient's age to complete this topic HPV VACCINE Aged Out No longer eligi ble based on patient's age to complete this topic MENINGOCOCCAL (Group B) VACCINE SHARED DECISION-MAKING Aged Out No longer eligible based on patient's age to complete this topic MENINGOCOCCAL GROUPS A/C/Y/W VACCINE Aged Out No longer eligible b ased on patient's age to complete this topic Insurance ANTHEM Care Teams Hospital Orderly Relationship Specialty Start Date End Date Pina Chin MD [address] [place] [id number] PCP - General Family Medicine 07/04/21
--- OUTSIDE RECORDS SUMMARY | 2025-06-06 15:36 | XMS_ITS | Clinical Summary ---
Author Organization 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 Gender Identity Not on file Sexual Orientation Not on file Plan of Treatment Health Maintenance Due Date Last Done Comments DTAP/TDAP/TD VACCINES (1 - Tdap) 1984 HEPATITIS B VACCINES (1 of 3 - 19+ 3-dose series) 08/07 HPV/Cotest (21-29) 1986 CERVICAL CANCER SCREENING 1995 HPV/Cotest (30-65) 1995 PAP SMEAR 1995 COLORECTAL SCREENING 2010 Colorectal Cancer Screening 2010 FIT-DNA Q 3 years 2010 FIT/FOBT Q 1 year 2010 Flex Sig/CT Colonography Q 5 years 2010 BREAST CANCER SCREENING 02/27/2013 02/28/2012 ZOSTER VACCINE (1 of 2) 2015 INFLUENZA VACCINE (#1) 2025 Procedures Procedure Name Priority Date/Time Associated Diagnosis [...] BCBS BLUE ACCESS/TRUE BLUE PPO Care Teams Provider Scribe Relationship Specialty Start Date End Date Juan Chin MD [address] [place] [address] PCP - General Family Practice 02/20/12
--- OUTSIDE RECORDS SUMMARY | 2025-06-06 15:36 | XMS_ITS | Clinical Summary ---
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 Gender Identity Not on file Sexual Orientation Not on file Plan of Treatment Health Maintenance Due Date Last Done Comments Hepatitis C Virus (HCV) Screening 1965 TdaP Immunization 1965 Hepatitis B Immunization (1 of 3 - 19+ 3-dose series) 1984 Pap Smear 1986 Cervical Cancer Screening (CCS) 1995 HPV/Cotest 1995 Cologuard 2010 Colonoscopy 2010 Colorectal Cancer Screening 2010 Immunochemical Fecal Occult Blood 2010 Pneumococcal Immunization (5 0+ years) (1 of 1 - PCV) 2015 Zoster Immunization (1 of 2) 2015 Influenza Immunization (#1) 2025 11/0 01/2021, 06/30/2018 SARS-COV-2 Immunization (2 - 2024- season) 2025 12/23/2020 Respiratory Syncytial Virus (RSV) Immunization (Adult) (1 - 1-dose 75+ series) 2040 Human Papillomavirus (HPV) Immunization Aged Out No longer eligible b ased on patient's age to complete this topic Meningococcal Immunization (ACWY) Aged Out No longer eligible b ased on patient's age to complete this topic Rotavirus Immunization Aged Out No lo nger eligible based on patient's age to complete this topic
--- OUTSIDE RECORDS SUMMARY | 2025-06-06 15:36 | XMS_ITS ---
Author Organization Unknown ENCOUNTERS Encounter Performer Location Date Diagnosis Diagnosis Status Outpatient [facility] [address] [place] [address] [id number] Outpatient Ashwini Arcos* * [place] [address] [place] [address] [id number] JEAN CLAUDE Outpatient [facility] [address] [place] [address] [id number] JEAN CLAUDE Outpatient [facility] [address] [place] [address] [id number] [facility] Outpatient [facility] [address] [place] [address] [id number] JEAN CLAUDE *Note: Encounters from your own facility or health system may be excluded. Allergies, Adverse Reactions, Alerts Allergen Type Severity Identification Date Medications Name Date Quantity Days Supplied [facility] Number
== END 2025-06-06 15:33 | disposition home or self-care (01) ==
LOC: ANHFOHIMG 15:34
PROVIDERS: PCP Emergency Medicine; Visit Provider Obstetrics & Gynecology Gynecology
DX: Z12.31 Encounter for screening mammogram for malignant neoplasm of breast (principal)
CPT/HCPCS: 77063; 77067

== ENCOUNTER 2025-07-25 10:18 | Outpatient (CLI) | payer BC, SELFPAY ==
--- OUTSIDE RECORDS SUMMARY | 2025-07-25 10:50 | XMS_ITS | Clinical Summary ---
Author Organization [facility] Care Team Providers Care Salon/Spa Manager Name Role Phone Unavailable Primary Care Provider Unavailabl e Social History Tobacco Use Types Packs/Day Years Used Date Smoking Tobacco: Never Assessed Comments Unknown Sex and Gender Information Value Date Recorded Sex Assigned at Not on file Legal Sex Female 9:46 PM INTELLIGENCE OPERATIONS Gender Identity Not on file Sexual Orientation [...]
--- OUTSIDE RECORDS SUMMARY | 2025-07-25 10:50 | XMS_ITS | Clinical Summary ---
Author Organization [facility] Address [address] [place] [address] Care Team Providers Care Case Manager Name Role Phone Pina Chin MD Primary Care Provider [phone] [facility],non-owned Affiliates and Associated Physician Practices is amultiple site organization consisting of ambulatory clinics and hospital sitesin [place], [place], [place] and [place]. This disclosure is being madepursuant to the Care Everywhere program and may not contain all information available regarding this patient. Last updated 18.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 Gender Identity Not on file Sexual Orientation Not on file Last Filed Vital Signs Vital Sign Reading Time Taken Comments Blood Pressure 144/90 07/04/2021 4:23 PM DATABASE ANALYST Pulse 85 07/04/2021 4:23 PM DATABASE ANALYST Temperature 37.1 C (98.7 F) 07/04/2021 4:23 PM DATABASE ANALYST Respiratory Rate 16 07/04/2021 4:23 PM DATABASE ANALYST Oxygen Saturation 98% 07/04/2021 4:23 PM DATABASE ANALYST Inhaled Oxygen Concentration - - Weight 110.7 kg (244 lb) 07/04/2021 4:23 PM DATABASE ANALYST Height 170.2 cm (5' 7) 07/04/2021 4:23 PM DATABASE ANALYST Body Mass Index 38.22 07/04/2021 4:23 PM DATABASE ANALYST Plan of Treatment Health Maintenance Due Date Last Done Comments COLOGUARD (AGES 45-75) - COLON CA SCREENING 1965 COLON MONITORING 1965 COLONOSCOPY [...] 12/23/2020 INFLUENZA VACCINE (#1) 2025 , 06/30/2018 Cervical Cancer Screening Discontinued PAP SMEAR Discontinued 07/04/2017 HIB VACCINE Aged Out No longer eligi ble based on patient's age to complete this topic HPV VACCINE Aged Out No longer eligi ble based on patient's age to complete this topic MENINGOCOCCAL (Group B) VACCINE SHARED DECISION-MAKING Aged Out No longer eligible based on patient's age to complete this topic MENINGOCOCCAL GROUPS A/C/Y/W VACCINE Aged Out No longer eligible based on patient's age to complete this topic PAP with HPV Discontinued Insurance ANTH Care Teams Case Manager Relationship Specialty Start Date End Date Pina Chin MD [address] [place] [id number] PCP - General Family Medicine 07/04/21
--- OUTSIDE RECORDS SUMMARY | 2025-07-25 10:50 | XMS_ITS | Clinical Summary ---
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
[2025-07-25 13:11] LABS: Alanine Aminotransferase 41 U/L (6-35); Albumin Level 4.1 g/dL (3.5-5.1); Alkaline Phosphatase 90 U/L (38-126); Anion Gap 7 mmol/L (4-12); Aspartate Amino Transferase 61 U/L (14-36); Bilirubin,Total 0.8 mg/dL (0.2-1.3); Blood Urea Nitrogen 19 mg/dL (7-17); Calcium 9.2 mg/dL (8.4-10.2); Carbon Dioxide 29 mmol/L (22-30); Chloride 107 mmol/L (98-107); Cholesterol 199 mg/dL (0-200); Estimated Glomerular Filt Rate > 60; Glucose 100 mg/dL (65-110); HDL Direct 42 mg/dL; Potassium 4.1 mmol/L (3.4-5.0); Sodium 143 mmol/L (137-145); Total Protein 7.8 g/dL (6.3-8.2); Triglycerides 163 mg/dL (<150)
[2025-07-25 13:27] LABS: Hemoglobin A1C 5.7 % (<5.7)
[2025-07-25 14:02] LABS: MALB Creatinine Ratio < 4.9 mg/g (0-30)
[2025-07-25 14:06] LABS: Vitamin B12 777.0 pg/mL (239-931)
== END 2025-07-25 10:19 | disposition home or self-care (01) ==
LOC: ANHGOSHLAB 10:19
PROVIDERS: PCP Emergency Medicine; Visit Provider Family Medicine
DX: R09.89 Other specified symptoms and signs involving the circulatory and respiratory systems (principal); R73.03 Prediabetes
CPT/HCPCS: 36415; 80053; 80061; 82043; 82607; 83036